=== PATIENT | female | born 1945 | race Caucasian/White ===

== ENCOUNTER 2023-11-27 15:11 | Inpatient (IN) | payer OTHER ==
[2023-11-27 17:38] LABS: BASO % 0.3 % (0-2.0); HEMATOCRIT 44.1 % (32.4-45.2); HEMOGLOBIN 14.9 GM/dL (10.7-15.3); LYMPH % 3.9 % (8-40); MCH 31.9 pg (25.7-33.7); MCHC 33.8 g/dl (32.0-36.0); MEAN CELL VOLUME 94.2 fl (80-96); MEAN PLT VOLUME 9.9 fl (7.5-11.1); MONO % 6.5 % (3.8-10.2); NEUT % 89.3 % (42.8-82.8); PLATELET COUNT 179 10^3/uL (134-434); RBC 4.68 M/mm3 (3.60-5.2); RDW 13.5 % (11.6-15.6); WHITE BLOOD COUNT 25.7 K/mm3 (4.0-10.0)
[2023-11-27 17:41] LABS: EPI CELLS 10 /uL (0-25.1); HYALINE CASTS 1 /uL (0-3.1); PH,URINE 5.5 (5.0-8.0); URINE APPEARANCE CLOUDY; URINE BACTERIA >9,000 /uL (0-1359); URINE BILIRUBIN 1+ (NEGATIVE); URINE COLOR ORANGE; URINE GLUCOSE (UA) 3+ (NEGATIVE); URINE KETONE 1+ (NEGATIVE); URINE LEUK ESTERASE 2+ (NEGATIVE); URINE NITRITE NEGATIVE (NEGATIVE); URINE PROTEIN 1+ (NEGATIVE); URINE RBC 26 /uL (0-23.9); URINE WBC 3649 /uL (0-25.8)
[2023-11-27] MEDS ORDERED: morphine SULFATE 4 MG/ML VIAL ONE (17:41)
[2023-11-27] MEDS: morphine CARPU-JECT 4 MG/1 ML DISP.SYRIN IVPUSH ONE (17:50)
[2023-11-27] MEDS: SODIUM CHLORIDE 1,000 ML IV STA (17:51)
[2023-11-27 17:58] LABS: ANISOCYTOSIS 2+; MACROCYTOSIS 2+
[2023-11-27 18:13] LABS: POTASSIUM 3.8 mmol/L (3.5-5.1)
[2023-11-27 18:15] LABS: MAGNESIUM 1.9 mg/dL (1.8-2.4)
[2023-11-27 18:18] LABS: CREATININE 0.9 mg/dL (0.55-1.3)
[2023-11-27 18:20] LABS: BILIRUBIN,TOTAL 1.8 mg/dL (0.2-1); TOT PROT 6.9 g/dl (6.4-8.2)
[2023-11-27] MEDS ORDERED: PIPERACILLIN/TAZOB 4.5 GM 4.5 GM/100 ML BAG IVPB ONE (19:53)
[2023-11-27] MEDS: PIPERACILLIN/TAZOB 4.5 GM 4.5 GM in DEXTROSE 5%-WATER 100 ML IVPB ONE (19:59)
[2023-11-27] MEDS: VANCOMYCIN HCL 1,500 MG in DEXTROSE 5%-WATER - 500 ML IVPB ONE (21:06)
[2023-11-27] MEDS: VANCOMYCIN PREMIX 1.5 GM 1,500 MG/300 ML BAG IVPB ONE (21:28)
[2023-11-27] MEDS: INSULIN ASPART SLIDING SCALE (NOVOLOG) 1 VIAL SQ SCH (22:52)
[2023-11-28] MEDS: SODIUM CHLORIDE 1,000 ML IV SCH (04:02)
[2023-11-28 05:36] VITALS: BMI 25.3
[2023-11-28] MEDS: IBUPROFEN 400 MG TABLET (FP) PO ONE (06:45)
[2023-11-28] MEDS: ENOXAPARIN NA (PORCINE) 40 MG/0.4 ML DISP.SYRIN SQ SCH (09:38)
[2023-11-28 09:48] LABS: BASO % 0.2 % (0-2.0); EOS % 0.3 % (0-4.5); HEMATOCRIT 38.5 % (32.4-45.2); MCH 32.1 pg (25.7-33.7); MCHC 33.7 g/dl (32.0-36.0); MEAN CELL VOLUME 95.3 fl (80-96); MEAN PLT VOLUME 10.5 fl (7.5-11.1); MONO % 4.9 % (3.8-10.2); NEUT % 83.6 % (42.8-82.8); PLATELET COUNT 140 10^3/uL (134-434); RBC 4.05 M/mm3 (3.60-5.2); RDW 13.9 % (11.6-15.6); WHITE BLOOD COUNT 17.9 K/mm3 (4.0-10.0)
[2023-11-28 09:54] LABS: HEMATOCRIT 38.4 % (32.4-45.2); HEMOGLOBIN 13.1 GM/dL (10.7-15.3); MCH 32.6 pg (25.7-33.7); MCHC 34.3 g/dl (32.0-36.0); MEAN CELL VOLUME 95.2 fl (80-96); MEAN PLT VOLUME 10.6 fl (7.5-11.1); PLATELET COUNT 136 10^3/uL (134-434); RBC 4.03 M/mm3 (3.60-5.2); RDW 13.7 % (11.6-15.6); WHITE BLOOD COUNT 17.6 K/mm3 (4.0-10.0)
[2023-11-28 10:09] LABS: POTASSIUM 3.6 mmol/L (3.5-5.1)
[2023-11-28 10:11] LABS: BLOOD UREA NITROGEN 14.4 mg/dL (7-18); CALCIUM 8.4 mg/dL (8.5-10.1)
[2023-11-28 10:14] LABS: CREATININE 0.7 mg/dL (0.55-1.3)
[2023-11-28 10:15] LABS: PHOSPHOROUS 1.8 mg/dL (2.5-4.9)
[2023-11-28 10:16] LABS: BILIRUBIN,TOTAL 1.1 mg/dL (0.2-1)
[2023-11-28 10:17] LABS: BILIRUBIN,DIRECT 0.4 mg/dL (0.0-0.2)
[2023-11-28 10:18] LABS: BILIRUBIN,TOTAL 1.1 mg/dL (0.2-1)
[2023-11-28 10:22] LABS: TOT PROT 5.8 g/dl (6.4-8.2)
[2023-11-28] MEDS ORDERED: INSULIN ASPART SLIDING SCALE (NOVOLOG) 1 VIAL SQ ONE ×2 (11:18→17:19)
[2023-11-28] MEDS: VANCOMYCIN 1,000 MG in DEXTROSE 5%-WATER - 250 ML IVPB SCH (13:04)
[2023-11-28] MEDS: PIPERACILLIN/TAZOB 4.5 GM 4.5 GM in DEXTROSE 5%-WATER 100 ML IVPB SCH ×2 (13:22)
[2023-11-28] MEDS: NAPH,MB-DB/K PH,MBDB POWDER PACKET PO SCH (13:22)
[2023-11-28] MEDS: ACETAMINOPHEN 1000 MG/100 ML BAG IVPB ONE (22:36)
[2023-11-28] MEDS: SENNOSIDES 8.6MG TABLET (FP) PO PRN (22:38)
[2023-11-29 09:22] LABS: BASO % 0.2 % (0-2.0); EOS % 1.3 % (0-4.5); HEMATOCRIT 39.5 % (32.4-45.2); HEMOGLOBIN 13.2 GM/dL (10.7-15.3); LYMPH % 16.1 % (8-40); MCH 32.1 pg (25.7-33.7); MCHC 33.5 g/dl (32.0-36.0); MEAN CELL VOLUME 95.8 fl (80-96); MEAN PLT VOLUME 9.9 fl (7.5-11.1); MONO % 7.1 % (3.8-10.2); NEUT % 75.3 % (42.8-82.8); PLATELET COUNT 141 10^3/uL (134-434); RBC 4.12 M/mm3 (3.60-5.2); RDW 13.3 % (11.6-15.6); WHITE BLOOD COUNT 12.4 K/mm3 (4.0-10.0)
[2023-11-29 09:47] LABS: POTASSIUM 3.9 mmol/L (3.5-5.1)
[2023-11-29 10:03] LABS: CALCIUM 8.3 mg/dL (8.5-10.1)
[2023-11-29 10:04] LABS: ALBUMIN 2.7 g/dl (3.4-5.0)
[2023-11-29 10:07] LABS: CREATININE 0.6 mg/dL (0.55-1.3)
[2023-11-29 10:08] LABS: BILIRUBIN,TOTAL 1.1 mg/dL (0.2-1); TOT PROT 5.8 g/dl (6.4-8.2)
[2023-11-29] MEDS: POLYETHYLENE GLYCOL (HEALTHYLAX) 3350 17 GM PACKET PO SCH (12:02)
[2023-11-30 02:07] LABS: FIBROSIS SCORE. 0.69 (0.00-0.21); HCV ALPHA 2 MACRO CHART 304 mg/dL (110-276); NECRO.INFLAM ACT.SCORE 0.47 (0.00-0.17); NECROINFLAM. ACTIVITY GRADE A1-A2 (.)
[2023-11-30 07:59] LABS: BASO % 0.4 % (0-2.0); EOS % 1.7 % (0-4.5); HEMATOCRIT 39.5 % (32.4-45.2); HEMOGLOBIN 13.4 GM/dL (10.7-15.3); LYMPH % 19.4 % (8-40); MCH 32.3 pg (25.7-33.7); MEAN CELL VOLUME 95.2 fl (80-96); MEAN PLT VOLUME 10.2 fl (7.5-11.1); MONO % 9.5 % (3.8-10.2); PLATELET COUNT 171 10^3/uL (134-434); RBC 4.15 M/mm3 (3.60-5.2); RDW 13.3 % (11.6-15.6); WHITE BLOOD COUNT 10.5 K/mm3 (4.0-10.0)
[2023-11-30 08:16] LABS: POTASSIUM 3.6 mmol/L (3.5-5.1)
[2023-11-30 08:18] LABS: ALBUMIN 2.5 g/dl (3.4-5.0); BLOOD UREA NITROGEN 8.1 mg/dL (7-18); CALCIUM 8.2 mg/dL (8.5-10.1); MAGNESIUM 1.9 mg/dL (1.8-2.4)
[2023-11-30 08:22] LABS: CREATININE 0.5 mg/dL (0.55-1.3)
[2023-11-30 08:23] LABS: BILIRUBIN,TOTAL 1.2 mg/dL (0.2-1); TOT PROT 5.8 g/dl (6.4-8.2)
[2023-12-01 08:42] LABS: POTASSIUM 3.9 mmol/L (3.5-5.1)
[2023-12-01 08:47] LABS: CALCIUM 8.5 mg/dL (8.5-10.1)
[2023-12-01 08:48] LABS: ALBUMIN 2.4 g/dl (3.4-5.0); BLOOD UREA NITROGEN 10.8 mg/dL (7-18)
[2023-12-01 08:51] LABS: CREATININE 0.5 mg/dL (0.55-1.3)
[2023-12-01 08:53] LABS: BILIRUBIN,TOTAL 1.1 mg/dL (0.2-1); TOT PROT 5.8 g/dl (6.4-8.2)
[2023-12-01 09:26] LABS: BASO % 0.8 % (0-2.0); EOS % 3.5 % (0-4.5); HEMATOCRIT 41.7 % (32.4-45.2); HEMOGLOBIN 14.2 GM/dL (10.7-15.3); LYMPH % 22.3 % (8-40); MCH 32.2 pg (25.7-33.7); MCHC 34.2 g/dl (32.0-36.0); MEAN CELL VOLUME 94.1 fl (80-96); MEAN PLT VOLUME 10.1 fl (7.5-11.1); MONO % 11.3 % (3.8-10.2); NEUT % 62.1 % (42.8-82.8); PLATELET COUNT 178 10^3/uL (134-434); RBC 4.43 M/mm3 (3.60-5.2); RDW 13.4 % (11.6-15.6); WHITE BLOOD COUNT 9.3 K/mm3 (4.0-10.0)
[2023-12-02 09:59] LABS: HEMATOCRIT 41.5 % (32.4-45.2); HEMOGLOBIN 14.2 GM/dL (10.7-15.3); MCH 32.4 pg (25.7-33.7); MCHC 34.1 g/dl (32.0-36.0); MEAN CELL VOLUME 94.8 fl (80-96); PLATELET COUNT 225 10^3/uL (134-434); RBC 4.38 M/mm3 (3.60-5.2); RDW 13.4 % (11.6-15.6); WHITE BLOOD COUNT 8.8 K/mm3 (4.0-10.0)
[2023-12-02 10:25] LABS: POTASSIUM 4.2 mmol/L (3.5-5.1)
[2023-12-02 10:27] LABS: CALCIUM 8.5 mg/dL (8.5-10.1)
[2023-12-02 10:31] LABS: CREATININE 0.7 mg/dL (0.55-1.3)
[2023-12-02 10:38] LABS: ANISOCYTOSIS 0; MACROCYTOSIS 0
[2023-12-02 23:09] VITALS: RESP 18
[2023-12-04 06:22] VITALS: TEMP 99
[2023-12-04 08:47] LABS: BASO % 0.4 % (0-2.0); EOS % 4.6 % (0-4.5); HEMATOCRIT 43.1 % (32.4-45.2); HEMOGLOBIN 14.8 GM/dL (10.7-15.3); LYMPH % 25.4 % (8-40); MCH 32.6 pg (25.7-33.7); MCHC 34.3 g/dl (32.0-36.0); MEAN CELL VOLUME 94.9 fl (80-96); MEAN PLT VOLUME 9.1 fl (7.5-11.1); MONO % 8.7 % (3.8-10.2); NEUT % 60.9 % (42.8-82.8); PLATELET COUNT 292 10^3/uL (134-434); RBC 4.54 M/mm3 (3.60-5.2); RDW 13.4 % (11.6-15.6); WHITE BLOOD COUNT 7.6 K/mm3 (4.0-10.0)
[2023-12-04 09:18] LABS: CALCIUM 8.9 mg/dL (8.5-10.1)
[2023-12-04 09:20] LABS: ALBUMIN 2.7 g/dl (3.4-5.0); BLOOD UREA NITROGEN 10.9 mg/dL (7-18); MAGNESIUM 2.4 mg/dL (1.8-2.4)
[2023-12-04 09:22] LABS: CREATININE 0.7 mg/dL (0.55-1.3)
[2023-12-04 09:24] LABS: BILIRUBIN,TOTAL 0.6 mg/dL (0.2-1)
[2023-12-04 09:26] LABS: TOT PROT 6.5 g/dl (6.4-8.2)
[2023-12-04 13:08] VITALS: BP 128/78; PULSE 110
== END 2023-12-04 13:58 | disposition home or self-care (01) | DRG 720 ==
LOC: JER 15:11 → JERBED 20:18 → J8W 11-28 01:27
PROVIDERS: ADMIT Internal Medicine; ATTEND Nurse Practitioner Acute Care
DX: A41.89 Other specified sepsis (principal); N10 Acute pyelonephritis; E11.9 Type 2 diabetes mellitus without complications; M54.9 Dorsalgia, unspecified; I10 Essential (primary) hypertension; R74.01 Elevation of levels of liver transaminase levels; B96.20 Unspecified Escherichia coli [E. coli] as the cause of diseases classified elsewhere; I69.351 Hemiplegia and hemiparesis following cerebral infarction affecting right dominant side; M51.36 Other intervertebral disc degeneration, lumbar region
CPT/HCPCS: 36415; 71045-TC-FY; 72131-TC; 74176-TC; 80048; 80053; 80061; 80076; 81003; 82172; 82248; 82962; 82977; 83010; 83036; 83735; 83883; 84100; 84439; 84443; 84460; 85025; 85027; 86705; 86708; 87040; 87086; 87186; 87340; 87517; 93005; 93010; 97116-GP; 97161-GP; 99285-25; J0131